=== PATIENT | male | born 1965 | race Caucasian/White ===

== ENCOUNTER 2025-03-15 08:10 | Emergency (ER) | payer MEDICARE, MEDICAID ==
[~2025-03-15] VITALS: Ht 167.6 cm; Wt 78.0 kg
[2025-03-15 08:14] VITALS: O2SAT 100
[2025-03-15] MEDS: LACTATED RINGERS 1,000 ML IV SCH (10:50)
[2025-03-15] MEDS: KETOROLAC 15MG/ML VIAL IV ONE (10:50)
[2025-03-15 11:06] LABS: BASOPHILS % 0.2 % (0.0-2.0); EOSINOPHILS % 0.1 % (0.0-5.0); HEMATOCRIT. 40.1 % (42.0-52.0); HEMOGLOBIN. 13.8 g/dL (14.0-18.0); LYMPHOCYTES % 9.2 % (20.0-50.0); MEAN PLATELET VOLUME 7.3 fl (7.4-10.4); MONOCYTES % 4.2 % (2.0-8.0); NEUTROPHILS % 86.3 % (40.0-76.0); PLATELET 259 x1000/uL (130-400); RED BLOOD CELL COUNT 4.29 mill/uL (4.7-6.1); RED CELL DISTRIBUTION WIDTH 13.4 % (11.6-14.6)
[2025-03-15 11:15] VITALS: TEMP 36.1
[2025-03-15 11:18] LABS: CREATININE 0.9 mg/dL (0.6-1.3); UREA NITROGEN BLOOD 13 mg/dL (9-23)
[2025-03-15 11:19] LABS: ETHANOL BLOOD < 10 mg/dL (<10)
[2025-03-15 11:20] LABS: ASPARTATE AMINOTRANSFERASE 28 IU/L (<34)
[2025-03-15 11:21] LABS: BILIRUBIN TOTAL 0.6 mg/dL (0.1-1.0); PROTEIN TOTAL 6.7 g/dL (6.0-8.3)
[2025-03-15 12:59] VITALS: TEMP 98.1
[2025-03-15] MEDS: TETANUS, DIPHTHERIA, PERTUSSIS VAC/PF 0.5ML (>10YR OLD) IM ONE (13:13)
[2025-03-15] MEDS: MORPHINE SULFATE 2 MG/ML INJ (NOT FOR IM USE) IV ONE (14:06)
[2025-03-15 14:39] VITALS: BP 130/87; PULSE 61; RESP 13; O2SAT 99
== END 2025-03-15 15:25 ==
LOC: ER 08:21 → CANBEDREQ 13:04 → ER 15:25
DX: T24.202A Burn of second degree of unspecified site of left lower limb, except ankle and foot, initial encounter (principal); T24.201A Burn of second degree of unspecified site of right lower limb, except ankle and foot, initial encounter; F23 Brief psychotic disorder; F15.10 Other stimulant abuse, uncomplicated; I10 Essential (primary) hypertension; Z59.00 Homelessness unspecified; X01.0XXA Exposure to flames in uncontrolled fire, not in building or structure, initial encounter; Y93.89 Activity, other specified; Y92.89 Other specified places as the place of occurrence of the external cause; Y99.8 Other external cause status
CPT/HCPCS: 80053; 80307; 80329; 80320; 85025; 36415; 90715; 90471; 96361; 96374; 96375; 99285; J1885; J2270; G0480